=== PATIENT | female | born 1930 | race Two or more races ===

== ENCOUNTER → 2017-05-05 | Outpatient (CLI) | payer OTHER ==
[~2017-05-05] MED LIST: NEURONTIN300 MG; PAROXETINE HCL10 MG; SYNTHROID50 MCG
== END | disposition home or self-care (01) ==
LOC: SONOGRAMA 09:42
DX: M25.571 Pain in right ankle and joints of right foot (principal); M25.471 Effusion, right ankle

== ENCOUNTER → 2017-05-05 | Outpatient (CLI) | payer OTHER | END | disposition home or self-care (01) | LOC: RAD 09:37 | DX: M25.571 Pain in right ankle and joints of right foot (principal); M25.561 Pain in right knee; M25.562 Pain in left knee ==

== ENCOUNTER 2018-05-10 11:34 | Outpatient (CLI) | payer OTHER | END 2018-05-10 11:39 | disposition home or self-care (01) | LOC: SONOGRAMA 11:34 | DX: C67.9 Malignant neoplasm of bladder, unspecified (principal) ==

== ENCOUNTER 2018-07-18 08:46 | Outpatient (CLI) | payer OTHER | END 2018-07-18 09:14 | disposition home or self-care (01) | LOC: RAD 501 08:46 | DX: M25.561 Pain in right knee (principal) ==

== ENCOUNTER 2018-07-21 11:32 | Emergency (ER) | payer OTHER ==
[~2018-07-21] VITALS: Ht 154.9 cm; Wt 72.6 kg
[2018-07-21] MEDS ORDERED: OMEPRAZOLE20 MG (11:52)
[2018-07-21] MEDS ORDERED: TOPROL XL25 M1 (11:52)
[2018-07-21] MEDS ORDERED: LEVAQUIN750 MG PO (15:20)
== END 2018-07-21 17:07 | disposition home or self-care (01) ==
LOC: ER 11:32
DX: N39.0 Urinary tract infection, site not specified (principal); B96.29 Other Escherichia coli [E. coli] as the cause of diseases classified elsewhere

== ENCOUNTER 2018-10-23 11:42 | Outpatient (CLI) | payer OTHER ==
[~2018-10-23 11:42] MED LIST changes: +LEVAQUIN750 MG PO; +OMEPRAZOLE20 MG; +TOPROL XL25 M1
== END 2018-10-23 11:45 | disposition home or self-care (01) ==
LOC: RAD 11:42
DX: S92.302A Fracture of unspecified metatarsal bone(s), left foot, initial encounter for closed fracture (principal); S92.312A Displaced fracture of first metatarsal bone, left foot, initial encounter for closed fracture

== ENCOUNTER 2019-04-22 21:55 | Emergency (ER) | payer OTHER ==
[~2019-04-22] VITALS: Ht 160 cm; Wt 61.2 kg
[~2019-04-22 21:55] MED LIST changes: +CITALOPRAM20 MG/10 M PO; +PROTONIX40 MG; +ZEGERID 20 MG1 EACH; +ZESTRIL20 MG
[2019-04-22] MEDS ORDERED: CARDIZEM30 MG (22:11)
== END 2019-04-22 22:37 | disposition home or self-care (01) ==
LOC: ER 21:55
DX: R00.2 Palpitations (principal)

== ENCOUNTER → 2019-06-02 | Emergency (ER) | payer OTHER ==
[~2019-06-02] MED LIST changes: +CARDIZEM30 MG
== END | disposition left against medical advice (07) ==
LOC: ER 12:33
DX: Z53.20 Procedure and treatment not carried out because of patient's decision for unspecified reasons (principal)

== ENCOUNTER 2019-12-03 07:40 | Outpatient (CLI) | payer OTHER | END 2019-12-03 07:41 | disposition home or self-care (01) | LOC: SONOGRAMA 07:40 | PROVIDERS: ATTEND Internal Medicine Gastroenterology | DX: R10.84 Generalized abdominal pain (principal) ==

== ENCOUNTER 2019-12-12 12:52 | Emergency (ER) | payer OTHER ==
[~2019-12-12] VITALS: Ht 162.6 cm; Wt 70.8 kg
[2019-12-12] MEDS ORDERED: LEVO-T25 MCG PO (13:06)
[2019-12-12] MEDS ORDERED: OMEPRAZOLE40 MG PO (13:07)
[2019-12-12] MEDS ORDERED: CLORAZEPATE D3.75 MG PO (13:07)
[2019-12-12] MEDS ORDERED: DILTIAZEM ER120 M2 PO (13:07)
[2019-12-12] MEDS ORDERED: ROSUVASTATIN CA10 MG PO (13:07)
== END 2019-12-12 14:40 | disposition home or self-care (01) ==
LOC: ER 12:52
DX: R53.81 Other malaise (principal); T54.91XA Toxic effect of unspecified corrosive substance, accidental (unintentional), initial encounter; Y92.89 Other specified places as the place of occurrence of the external cause

== ENCOUNTER 2021-08-17 07:50 | Outpatient (CLI) | payer OTHER ==
[~2021-08-17 07:50] MED LIST changes: +CLORAZEPATE D3.75 MG PO; +DILTIAZEM ER120 M2 PO; +LEVO-T25 MCG PO; +OMEPRAZOLE40 MG PO; +ROSUVASTATIN CA10 MG PO
== END 2021-08-17 07:51 | disposition home or self-care (01) ==
LOC: NUCLEAR 07:50
PROVIDERS: ATTEND Internal Medicine
DX: I31.3 Pericardial effusion (noninflammatory) (principal); Z92.21 Personal history of antineoplastic chemotherapy; I70.0 Atherosclerosis of aorta

== ENCOUNTER 2022-05-20 08:20 | Outpatient (CLI) | payer OTHER ==
[~2022-05-20 08:20] MED LIST changes: +AMBIEN5 MG PO; +COZAAR25 MG PO; +HORIZANT300 MG PO; +PEPCID AC20 MG PO; +SIMVASTATIN5 MG PO; +TAGRISSO80 MG PO
== END 2022-05-20 08:23 | disposition home or self-care (01) ==
LOC: NUCLEAR 08:20
PROVIDERS: ATTEND Internal Medicine
DX: I50.32 Chronic diastolic (congestive) heart failure (principal); I10 Essential (primary) hypertension